=== PATIENT | female | born 1975 | race Caucasian/White ===

== ENCOUNTER 2017-07-19 15:07 | Emergency (ER) | payer OTHER ==
[~2017-07-19] VITALS: Ht 162.6 cm; Wt 78.5 kg
[2017-07-19 15:09] VITALS: BP 154/95
[2017-07-19 15:24] LABS: BASOPHILS # (AUTO) 0.3 K/uL (0.00-0.22); EOSINOPHILS # (AUTO) 0.1 K/uL (0-0.4); HEMOGLOBIN 12.6 g/dL (12.0-16.0); LYMPHOCYTES # (AUTO) 1.6 K/uL (2.5-16.5); MEAN CORPUSCULAR HEMOGLOBIN 30 pg (27-31); MEAN CORPUSCULAR HGB CONC 33 g/dL (33-37); MEAN CORPUSCULAR VOLUME 90 fL (80-94); MONOCYTES # (AUTO) 0.7 K/uL (0.8-1.0); NEUTROPHILS # (AUTO) 4.6 K/uL (1.8-7.7); PLATELET COUNT (AUTO) 311 K/uL (140-450); RED BLOOD CELL COUNT(AUTO) 4.22 MIL/uL (4.20-5.40); RED CELL DISTRIBUTION WIDTH 12.9 % (11.6-13.7); WHITE BLOOD COUNT (AUTO) 7.3 K/uL (4.8-10.8)
[2017-07-19 15:45] LABS: ANION GAP 14.4 (8-16); CARBON DIOXIDE 25.1 mmol/L (21-32); CREATININE 0.8 mg/dL (0.6-1.3); POTASSIUM 3.5 mmol/L (3.5-5.1)
[2017-07-19 15:47] LABS: PROTHROMBIN TIME 10.1 secs (10.8-13.4)
[2017-07-19 15:51] LABS: ALBUMIN 4.1 g/dL (3.4-5.0); TOTAL BILIRUBIN 0.6 mg/dL (0.0-1.0)
--- NOTE | 2017-07-19 16:56 | NUR ---
Patient ambulated to bed 8. RN evaluating patient at bedside.
--- NOTE | 2017-07-19 17:00 | NUR ---
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 ER MD MADE AWARE OF PT STATUS.
--- NOTE | 2017-07-19 17:19 | NUR ---
Dr. Valenzuela evaluating patient at bedside.
[2017-07-19] MEDS ORDERED: LORazepam 1 MG TAB PO ONE (17:25)
[2017-07-19 17:49] VITALS: BP 141/76
--- NOTE | 2017-07-19 17:49 | NUR ---
Patient discharged with v/s stable. Written and verbal after care instructions given and explained. Patient verbalized understanding. Ambulatory with steady gait. All questions addressed prior to discharge. Advised to follow up with PMD.
== END 2017-07-19 17:49 | disposition home or self-care (01) ==
LOC: MED 15:07
DX: F19.10 Other psychoactive substance abuse, uncomplicated (principal); R00.2 Palpitations; R03.0 Elevated blood-pressure reading, without diagnosis of hypertension
CPT/HCPCS: 36415; 71010; 80053; 84484; 85025; 85610; 85730; 93005; 99285

== ENCOUNTER 2022-05-25 15:14 | Emergency (ER) | payer OTHER ==
[~2022-05-25] VITALS: Ht 162.6 cm; Wt 86.2 kg
[2022-05-25 15:34] VITALS: BP 122/67
[2022-05-25] MEDS ORDERED: DIPH25TA53 PO (16:26)
[2022-05-25] MEDS ORDERED: CEPH-588 PO (16:26)
[2022-05-25] MEDS ORDERED: HYDR28CR38 TP (16:26)
--- NOTE | 2022-05-25 17:38 | NUR ---
CALLED FOR DISCHARGE NO RESPONSE
--- NOTE | 2022-05-25 17:44 | NUR ---
LEFT WITHOUT DISCHARGE PAPERWORK
== END 2022-05-25 17:44 | disposition home or self-care (01) ==
LOC: MED 15:14
DX: L25.9 Unspecified contact dermatitis, unspecified cause (principal); Z85.9 Personal history of malignant neoplasm, unspecified
CPT/HCPCS: 99283